=== PATIENT | female | born 1955 | race Two or more races ===

== ENCOUNTER 2019-08-07 01:10 | Emergency (ER) | payer MEDICAID ==
[~2019-08-07] VITALS: Ht 157.5 cm; Wt 70.3 kg
--- NOTE | 2019-08-07 01:15 | NUR ---
PATIENT CAME TO ER BED 15 FOR ANXIETY, LINA SATES THAT SHE CANNOT LIVE WITHOUT YAMILET (PATIENT'S DO) DENIES SIHI. AAAOX4. NO SOB. BREATHING EVENLY AND UNLABORED ON ROOM AIR.
[2019-08-07] MEDS ORDERED: OLANZAPINE 5 MG TABLET PO ONE (01:30)
[2019-08-07] MEDS ORDERED: LORAZEPAM 1 MG TABLET PO ONE (01:30)
[2019-08-07] MEDS ORDERED: OLANZAPINE 5 MG TABLET ONE (01:36)
[2019-08-07] MEDS ORDERED: LORAZEPAM 1 MG TABLET ONE (01:36)
[2019-08-07 01:43] LABS: BASOPHILS # (AUTO) 0.1 /CMM (0.0-0.2); BASOPHILS % (AUTO) 0.7 % (0.0-2.0); EOSINOPHILS % (AUTO) 1.9 % (0.0-6.0); HEMATOCRIT 35 % (33-45); HEMOGLOBIN 11.3 g/dL (11.5-14.8); LYMPHOCYTES # (AUTO) 2.5 /CMM (0.8-4.8); LYMPHOCYTES % (AUTO) 30.9 % (20.0-44.0); MEAN CORPUSCULAR HGB CONC 32 g/dl (31.0-36.0); MEAN CORPUSCULAR VOLUME 89 fL (82-100); MONOCYTES # (AUTO) 0.7 /CMM (0.1-1.30); MONOCYTES % (AUTO) 8.6 % (2.0-12.0); NEUTROPHILS # (AUTO) 4.7 /CMM (1.8-8.9); NEUTROPHILS % (AUTO) 57.9 % (43.0-81.0); PLATELET COUNT (AUTO) 386 /CMM (150-450); RED BLOOD CELL COUNT(AUTO) 3.91 MIL/uL (4.0-5.2); WHITE BLOOD COUNT (AUTO) 8.2 K/uL (4.3-11.0)
[2019-08-07 02:06] LABS: ALANINE AMINOTRANSFERASE 24 U/L (12-78); ALBUMIN 3.8 g/dL (3.4-5.0); ALKALINE PHOSPHATASE 70 U/L (46-116); ASPARTATE AMINOTRANSFERASE 28 U/L (15-37); BILIRUBIN,DIRECT 0.1 mg/dL (0.0-0.2); BILIRUBIN,TOTAL 0.2 mg/dL (0.2-1.0); CALCIUM, SERUM 9.2 mg/dL (8.5-10.1); CARBON DIOXIDE 28 mmol/L (21-32); CHLORIDE 107 mmol/L (98-107); GLUCOSE 109 mg/dL (74-106); POTASSIUM 3.7 mmol/L (3.5-5.1); SODIUM SERUM 144 mmol/L (136-145); TOTAL PROTEIN, SERUM 7.5 g/dL (6.4-8.2); UREA NITROGEN, BLOOD 25 mg/dL (7-18)
[2019-08-07 02:17] LABS: ACETAMINOPHEN 0 ug/ml (10-30); ALCOHOL, BLOOD < 3 mg/dL (0-0); SALICYLATE 1.7 mg/dL (2.8-20.0)
[2019-08-07 03:29] LABS: APPEARANCE,URINE Clear (CLEAR); BILIRUBIN,URINE Negative (NEGATIVE); BLOOD, URINE Trace-lysed Ery/uL (NEGATIVE); COLOR,URINE Yellow (YELLOW); KETONES,URINE Negative (NEGATIVE); LEUKOCYTE ESTERASE ,URINE Negative (NEGATIVE); NITRITE, URINE Negative (NEGATIVE); PH,URINE 5.5 (5.0-8.0); PROTEIN,URINE Negative (NEGATIVE); UGLUCOSE Negative (NEGATIVE)
[2019-08-07 03:48] LABS: BACTERIA,URINE None seen /HPF (None Seen); RBC,URINE 0-2 /HPF (0-2); SQUAMOUS EPITHELIAL CELL,UR Few /HPF (None Seen); WBC,URINE 0-2 /HPF (0-3)
--- NOTE | 2019-08-07 04:08 | NUR ---
PT IN BED SLEEPING. NAD NOTED.
--- NOTE | 2019-08-07 10:23 | NUR ---
NIKHIL SSD AT BEDSIDE FOR EVAL.
--- NOTE | 2019-08-07 10:52 | NUR ---
Social service consult requested by Md for suicidal ideation. Per MD notes and chart review, pt is a 62-year-old female brought in by rescue with complaints of being anxious and agitated. Patient states that she "cannot live and wants to "patient states she is felt this way since her dog . Denies homicidal ideation. PLUMBING INSTRUCTOR met with the pt bedside. Pt has a sitter bedside for safety. Pt is alert and oriented x 4. Pt appears anxious and tearful. Pt reports, she is depressed and upset over her dog dying. Pt is requesting voluntary psychiatric admission. PLUMBING INSTRUCTOR contacted Matthias at [facility] and faxed clinicals to [facility] intake for voluntary psychiatric admission.
--- NOTE | 2019-08-07 12:24 | NUR ---
VEHICLE BODY SANDER received call from [facility] intake. Pt has been accepted at [place]. Accepting Dr. Osullivan/Dr. Matthew. Report called to KWAN Rivera at x [phone] or [phone]. EVA updated Terell in ED
--- NOTE | 2019-08-07 12:29 | NUR ---
SLUG PRESS OPERATOR received call from [facility] intake. Pt has been accepted at [place]. Accepting Dr. Osullivan/Dr. Matthew. Report called to KWAN Rivera at x [phone] or [phone]. EVA updated Terell in ED
--- NOTE | 2019-08-07 14:30 | NUR ---
CALLED TRANSPORT [facility] ETA 1500 PER [facility]
[2019-08-07 15:24] VITALS: BP 121/65
--- NOTE | 2019-08-07 15:44 | NUR ---
REPORT GIVEN TO DEIRDRE BOWENS FOR GREER
== END 2019-08-07 15:46 ==
LOC: ER 01:14
DX: F32.9 Major depressive disorder, single episode, unspecified (principal); F41.9 Anxiety disorder, unspecified
CPT/HCPCS: 36415; 80048; 80076; 80305; 80307; 80329; 81001; 85025; G0480; 81000-TC; A6403

== ENCOUNTER 2019-08-20 04:11 | Emergency (ER) | payer MEDICAID ==
[~2019-08-20] VITALS: Ht 157.5 cm; Wt 66.2 kg
--- NOTE | 2019-08-20 04:17 | NUR ---
PT AAOX4. AMBULATORY BIBRA 878 FROM HOME C/O HEARING VOICES, DENIES SI AND HI. PLACED IN BED 12. ON MONITOR AND PULSE OX. VSS. NO ACUTE DISTRESS NOTED.
[2019-08-20] MEDS ORDERED: OLANZAPINE 10 MG VIAL IM ONE ×2 (04:21→04:30)
--- NOTE | 2019-08-20 04:29 | NUR ---
INDUSTRIAL MACHINE OPERATOR AT BEDSIDE. URINE GIVEN TO INDUSTRIAL MACHINE OPERATOR.
[2019-08-20 04:41] LABS: BASOPHILS # (AUTO) 0.1 /CMM (0.0-0.2); BASOPHILS % (AUTO) 0.7 % (0.0-2.0); EOSINOPHILS % (AUTO) 2.7 % (0.0-6.0); HEMATOCRIT 34 % (33-45); HEMOGLOBIN 11.2 g/dL (11.5-14.8); MEAN CORPUSCULAR HGB CONC 32 g/dl (31.0-36.0); MEAN CORPUSCULAR VOLUME 89 fL (82-100); MONOCYTES # (AUTO) 0.6 /CMM (0.1-1.30); MONOCYTES % (AUTO) 6.9 % (2.0-12.0); NEUTROPHILS # (AUTO) 5.7 /CMM (1.8-8.9); NEUTROPHILS % (AUTO) 66.7 % (43.0-81.0); PLATELET COUNT (AUTO) 332 /CMM (150-450); RED BLOOD CELL COUNT(AUTO) 3.88 MIL/uL (4.0-5.2); WHITE BLOOD COUNT (AUTO) 8.6 K/uL (4.3-11.0)
[2019-08-20 04:42] LABS: APPEARANCE,URINE CLEAR (CLEAR); BILIRUBIN,URINE NEGATIVE (NEGATIVE); BLOOD, URINE TRACE-INTA Ery/uL (NEGATIVE); COLOR,URINE YELLOW (YELLOW); KETONES,URINE NEGATIVE (NEGATIVE); LEUKOCYTE ESTERASE ,URINE SMALL (NEGATIVE); NITRITE, URINE NEGATIVE (NEGATIVE); PROTEIN,URINE NEGATIVE (NEGATIVE); UGLUCOSE NEGATIVE (NEGATIVE); UROBILINOGEN,URINE 0.2 EU/dL (0.2)
[2019-08-20 04:51] LABS: BACTERIA,URINE None seen /HPF (None Seen); RBC,URINE 0-2 /HPF (0-2); SQUAMOUS EPITHELIAL CELL,UR Few /HPF (None Seen)
[2019-08-20 04:56] LABS: ALANINE AMINOTRANSFERASE 28 U/L (12-78); ALBUMIN 3.6 g/dL (3.4-5.0); ALCOHOL, BLOOD < 3 mg/dL (0-0); ALKALINE PHOSPHATASE 78 U/L (46-116); ASPARTATE AMINOTRANSFERASE 23 U/L (15-37); BILIRUBIN,DIRECT 0.1 mg/dL (0.0-0.2); BILIRUBIN,TOTAL 0.2 mg/dL (0.2-1.0); CALCIUM, SERUM 8.7 mg/dL (8.5-10.1); CARBON DIOXIDE 24 mmol/L (21-32); CHLORIDE 108 mmol/L (98-107); CREATININE 0.9 mg/dL (0.6-1.3); GLUCOSE 152 mg/dL (74-106); POTASSIUM 3.5 mmol/L (3.5-5.1); SODIUM SERUM 144 mmol/L (136-145); TOTAL PROTEIN, SERUM 7.2 g/dL (6.4-8.2); UREA NITROGEN, BLOOD 18 mg/dL (7-18)
[2019-08-20 04:57] LABS: ACETAMINOPHEN 0 ug/ml (10-30); SALICYLATE 1.4 mg/dL (2.8-20.0)
--- NOTE | 2019-08-20 07:30 | NUR ---
Patient is resting comfortably in bed with eyes closed. Easily aroused. VSS.
--- NOTE | 2019-08-20 10:30 | NUR ---
RESPONDS TO TACTILE STIMULI, VSS
--- NOTE | 2019-08-20 15:00 | NUR ---
PT AMBULATED WITH STEADY GAIT TO RESTROOM.
--- NOTE | 2019-08-20 15:30 | NUR ---
PT AWAKE, STATES FEELING BETTER AND WOULD LIKE TO BE EVALUATED. STILL DENIES SI/HI, STILL HEARS VOICES. VSS.
--- NOTE | 2019-08-20 15:45 | NUR ---
CALLED [place] FOR [facility]. STATED TO WAIT UNTIL [place] AFTER 17[address]. ON [address] WAY CURRENTLY TO [place] FOR ANOTHER PT.
--- NOTE | 2019-08-20 15:48 | NUR ---
PT PROVIDED FOOD TRAY
--- NOTE | 2019-08-20 17:32 | NUR ---
Patient is resting comfortably in bed with eyes closed. Easily aroused. VSS
--- NOTE | 2019-08-20 19:25 | NUR ---
CALLED ANGIE WATERSHED PROGRAM MANAGER FOR EVALUATION. WILL GET BACK TO ME ABOUT WHO WILL RESPOND TO EVALUATE.
--- NOTE | 2019-08-20 19:35 | NUR ---
DR RUSSELL ON PHONE WITH ANGIE AOC OPERATIONS INTELLIGENCE OFFICER
--- NOTE | 2019-08-20 19:38 | NUR ---
DEREK- ANDRESSA [phone]
[2019-08-20] MEDS ORDERED: OLANZAPINE 5 MG TABLET ONE (19:43)
--- NOTE | 2019-08-20 19:48 | NUR ---
PT GIVEN PO MEDS PER ORDER, AND SANDWICH
[2019-08-20] MEDS ORDERED: OLANZAPINE 5 MG TABLET PO ONE (20:00)
--- NOTE | 2019-08-20 21:30 | NUR ---
Patient is resting comfortably in bed with eyes closed. Easily aroused. VSS
--- NOTE | 2019-08-20 22:51 | NUR ---
DAFNE COOKIE MIXER HELPER ETA 30 MIN
[2019-08-21] MEDS ORDERED: OLANZAPINE 5 MG TABLET ONE (00:34)
[2019-08-21] MEDS: OLANZAPINE 5 MG TABLET PO ONE ×2 (05:30)
[2019-08-21 05:40] VITALS: BP 107/66
--- NOTE | 2019-08-21 05:40 | NUR ---
SPOKED TO AHMET JOHN'S DAUGHTER SHE WILL PICK HER UP AT 0630H.
--- NOTE | 2019-08-21 06:29 | NUR ---
Patient discharged to home in stable condition. Written and verbal after care instructions given. Patient verbalizes understanding of instruction.
== END 2019-08-21 06:30 | disposition home or self-care (01) ==
LOC: ER 04:12
DX: R44.0 Auditory hallucinations (principal); F15.10 Other stimulant abuse, uncomplicated; I10 Essential (primary) hypertension; F32.9 Major depressive disorder, single episode, unspecified; Z88.0 Allergy status to penicillin
CPT/HCPCS: 36415; 80048; 80076; 80305; 80307; 80329; 81001; 85025; 96372; 99285; G0480; J3490; 81000-TC

== ENCOUNTER 2019-09-02 14:45 | Emergency (ER) | payer MEDICAID ==
[~2019-09-02] VITALS: Ht 157.5 cm; Wt 66.2 kg
--- NOTE | 2019-09-02 14:55 | NUR ---
c/o weakness and loss of appetite x 3 days. Patient a/ox4, breathing even and unlabored, no sob noted, needs attended, kept comfortable. Attached to the cardiac technician.
[2019-09-02] MEDS ORDERED: HYDROCODONE/APAP 5/325MG 1 EACH TABLET PO ONE (15:00)
[2019-09-02] MEDS ORDERED: HYDROCODONE/APAP 5/325MG 1 EACH TABLET ONE (15:07)
--- NOTE | 2019-09-02 15:14 | NUR ---
FLU SWAB SENT TO LAB.
--- NOTE | 2019-09-02 15:19 | NUR ---
FALL INTERN AT BEDSIDE FOR XRAY.
[2019-09-02 15:21] LABS: BASOPHILS % (AUTO) 0.6 % (0.0-2.0); EOSINOPHILS % (AUTO) 1.8 % (0.0-6.0); HEMATOCRIT 36 % (33-45); HEMOGLOBIN 11.9 g/dL (11.5-14.8); LYMPHOCYTES % (AUTO) 32.4 % (20.0-44.0); MEAN CORPUSCULAR HGB CONC 33 g/dl (31.0-36.0); MEAN CORPUSCULAR VOLUME 88 fL (82-100); MONOCYTES # (AUTO) 0.5 /CMM (0.1-1.30); MONOCYTES % (AUTO) 7.9 % (2.0-12.0); NEUTROPHILS # (AUTO) 3.5 /CMM (1.8-8.9); NEUTROPHILS % (AUTO) 57.3 % (43.0-81.0); PLATELET COUNT (AUTO) 305 /CMM (150-450); RED BLOOD CELL COUNT(AUTO) 4.08 MIL/uL (4.0-5.2); WHITE BLOOD COUNT (AUTO) 6.2 K/uL (4.3-11.0)
[2019-09-02 15:31] LABS: CREATININE 0.8 mg/dL (0.6-1.3); POTASSIUM 3.4 mmol/L (3.5-5.1)
[2019-09-02 15:37] LABS: ALBUMIN 3.7 g/dL (3.4-5.0); BILIRUBIN,TOTAL 0.5 mg/dL (0.2-1.0); TOTAL PROTEIN, SERUM 7.3 g/dL (6.4-8.2)
--- NOTE | 2019-09-02 16:27 | NUR ---
PATIENT A/OX4, BREATHING EVEN AND UNLABORED, NO SOB NOTED, NEEDS ATTENDED, KEPT COMFORTABLE. Patient discharged to home in stable condition. Written and verbal after care instructions given. Patient verbalizes understanding of instruction. Waiting for daughter to pick her up.
[2019-09-02 16:29] VITALS: BP 122/77
== END 2019-09-02 16:31 | disposition home or self-care (01) ==
LOC: ER 14:47
DX: B34.9 Viral infection, unspecified (principal); R05 Cough; G89.29 Other chronic pain; F50.89 Other specified eating disorder; I10 Essential (primary) hypertension
CPT/HCPCS: 36415; 71045-TC; 80053-TC; 85025-TC

== ENCOUNTER 2019-09-02 19:17 | Emergency (ER) | payer MEDICAID ==
[~2019-09-02] VITALS: Ht 157.5 cm; Wt 59.0 kg
--- NOTE | 2019-09-02 20:10 | NUR ---
WARD TO ER BED 9. AAOX4. NOT IN RESP DISTRESS. AGITATED. CAME IN FOR THOUGHT OF BEING . PT IS DEPRESSED. C/O AUDITORY HALLUCINATIONS THAT KEEPS REPEATING WHAT EVER THE PATIENT IS SAYING, KEEPS CALLING HER NAME OVER AND OVER. PT IS FEELING DEPRESSED BECAUSE OF HER DOG PASSING AWAY. PT DID VERBALIZE THAT SHE IS BUT HAVE NO SPECIFIC PLAN TO HARM HERSELF. PT IS STRIPPED OFF CLOTHING AND PERSONAL BELONGINGS KEPT IN LOCKER. 1:1 SITTER AT BEDSIDE. MD AT BEDSIDE FOR EVAL. BLOOD DRAWN. WILL CONTINUE TO MONITOR
[2019-09-02 20:20] LABS: BASOPHILS % (AUTO) 0.3 % (0.0-2.0); HEMATOCRIT 35 % (33-45); HEMOGLOBIN 11.6 g/dL (11.5-14.8); LYMPHOCYTES # (AUTO) 1.6 /CMM (0.8-4.8); LYMPHOCYTES % (AUTO) 16.5 % (20.0-44.0); MEAN CORPUSCULAR HGB CONC 33 g/dl (31.0-36.0); MEAN CORPUSCULAR VOLUME 88 fL (82-100); MONOCYTES # (AUTO) 0.8 /CMM (0.1-1.30); MONOCYTES % (AUTO) 8.4 % (2.0-12.0); NEUTROPHILS # (AUTO) 7.1 /CMM (1.8-8.9); NEUTROPHILS % (AUTO) 73.8 % (43.0-81.0); PLATELET COUNT (AUTO) 298 /CMM (150-450); RED BLOOD CELL COUNT(AUTO) 3.99 MIL/uL (4.0-5.2); WHITE BLOOD COUNT (AUTO) 9.6 K/uL (4.3-11.0)
[2019-09-02 20:33] LABS: CALCIUM, SERUM 9.2 mg/dL (8.5-10.1); CARBON DIOXIDE 25 mmol/L (21-32); CHLORIDE 107 mmol/L (98-107); GLUCOSE 156 mg/dL (74-106); POTASSIUM 3.1 mmol/L (3.5-5.1); SODIUM SERUM 143 mmol/L (136-145); UREA NITROGEN, BLOOD 23 mg/dL (7-18)
[2019-09-02] MEDS ORDERED: OLANZAPINE 10 MG VIAL IM ONE ×2 (20:35→21:00)
[2019-09-02 20:38] LABS: ALANINE AMINOTRANSFERASE 25 U/L (12-78); ALBUMIN 3.5 g/dL (3.4-5.0); ALCOHOL, BLOOD < 3 mg/dL (0-0); ALKALINE PHOSPHATASE 65 U/L (46-116); ASPARTATE AMINOTRANSFERASE 31 U/L (15-37); BILIRUBIN,DIRECT 0.1 mg/dL (0.0-0.2); BILIRUBIN,TOTAL 0.3 mg/dL (0.2-1.0); TOTAL PROTEIN, SERUM 7.1 g/dL (6.4-8.2)
[2019-09-02 20:39] LABS: APPEARANCE,URINE Clear (CLEAR); BILIRUBIN,URINE LARGE (NEGATIVE); BLOOD, URINE Trace-intact Ery/uL (NEGATIVE); COLOR,URINE Yellow (YELLOW); KETONES,URINE 15 (NEGATIVE); LEUKOCYTE ESTERASE ,URINE Trace (NEGATIVE); NITRITE, URINE Negative (NEGATIVE); PH,URINE 5.5 (5.0-8.0); PROTEIN,URINE 30 mg/dl (NEGATIVE); UGLUCOSE Negative (NEGATIVE)
[2019-09-02 20:46] LABS: ACETAMINOPHEN 0 ug/ml (10-30)
[2019-09-02 20:58] LABS: BACTERIA,URINE Few /HPF (None Seen); MUCUS,URINE Few /LPF (None Seen); RBC,URINE 0-2 /HPF (0-2); SQUAMOUS EPITHELIAL CELL,UR Few /HPF (None Seen); URINE AMORPHOUS URATE Few /HPF (None Seen); WBC,URINE 0-2 /HPF (0-3)
--- NOTE | 2019-09-02 21:10 | NUR ---
ANDRESSA BOWERS (DAUGHTER) [phone]
[2019-09-02] MEDS ORDERED: POTASSIUM CHLORIDE 20 MEQ TAB.PRT.SR PO ONE ×2 (21:30→21:39)
--- NOTE | 2019-09-03 01:27 | NUR ---
PT IN BED SLEEPING. BREATHING EVEN AND UNLABORED. NAD
--- NOTE | 2019-09-03 03:03 | NUR ---
PT IN BED SLEEPING COPMFORTABLY. NAD NOTED
--- NOTE | 2019-09-03 07:30 | NUR ---
pt covid test bill tolerated well fell back to sleep vss
--- NOTE | 2019-09-03 17:00 | NUR ---
pt awake talking on phone and watching tv quite calm vss tolerating snacks
--- NOTE | 2019-09-03 19:26 | NUR ---
REPORT RECEIVED FROM KWAN KERR
--- NOTE | 2019-09-03 21:41 | NUR ---
PT IN BED SLEEPING AND RESTING COMFORTABLY. SAFETY PRECAUTIONS IN PLACE. SITTER AT BEDSIDE FOR SAFETY
--- NOTE | 2019-09-04 00:17 | NUR ---
PT IN BED SLEEPING AND RESTING COMFORTABLY. SAFETY PRECAUTIONS IN PLACE. SITTER AT BEDSIDE FOR SAFETY
--- NOTE | 2019-09-04 02:27 | NUR ---
PT IN BED SLEEPING AND RESTING COMFORTABLY. SAFETY PRECAUTIONS IN PLACE. SITTER AT BEDSIDE FOR SAFETY
--- NOTE | 2019-09-04 04:09 | NUR ---
PT IN AWAKE AND RESTING COMFORTABLY. SAFETY PRECAUTIONS IN PLACE. SITTER AT BEDSIDE FOR SAFETY
--- NOTE | 2019-09-04 06:34 | NUR ---
PT SLEEPING AND RESTING COMFORTABLY. SAFETY PRECAUTIONS IN PLACE. SITTER AT BEDSIDE FOR SAFETY
[2019-09-04] MEDS ORDERED: HYDROCODONE/APAP 5/325MG 1 EACH TABLET ONE (10:26)
[2019-09-04] MEDS ORDERED: HYDROCODONE/APAP 5/325MG 1 EACH TABLET PO ONE (10:30)
--- NOTE | 2019-09-04 11:47 | NUR ---
ORGANIZATIONAL DEVELOPMENT DIRECTOR consulted with ED CRN Abundio in regards to pt. needing voluntary psychiatric admission. Pt was evaluated by drying machine receiver Amadeo and referred to [facility]. Pt was tested for negative for Covid. ORGANIZATIONAL DEVELOPMENT DIRECTOR refaxed clinicals to [facility] and spoke with Leah at [facility] intake.
--- NOTE | 2019-09-04 11:53 | NUR ---
patient asleep in no distress. arousable. Ambulate to bathroom with steady gait.
--- NOTE | 2019-09-04 13:06 | NUR ---
CRYPTOLOGIC TECHNICIAN called Leah at [facility] for a f/u. Per [facility], pt has been referred to [facility] and is pending acceptance by nursing a p supervisor. [facility] to call back once pt is accepted. Addendum: 09/04/19 at 1318 by NIKHIL LAW Received a call back from Leah at [facility] informing velma VELASQUEZ at [facility] is reviewing the clinicals and will call back shortly.
--- NOTE | 2019-09-04 14:23 | NUR ---
Pt accepted to [facility] Room 605-A Accepting MD is Dr. Vaz Number for report is [phone]
--- NOTE | 2019-09-04 14:47 | NUR ---
CALLED [facility] FOR TRANSPORT TO [facility]. ETA 1 HOUR AND A HALF 1530.
[2019-09-04 15:11] VITALS: BP 110/68
--- NOTE | 2019-09-04 15:13 | NUR ---
ambulance at bedside to burr picker the patient going to [facility] in no distress.
== END 2019-09-04 15:13 ==
LOC: ER 19:20
DX: R45.851 Suicidal ideations (principal); F15.10 Other stimulant abuse, uncomplicated; I10 Essential (primary) hypertension; F32.9 Major depressive disorder, single episode, unspecified; F20.9 Schizophrenia, unspecified; Z88.0 Allergy status to penicillin
CPT/HCPCS: 36415; 80048; 80076; 80305; 80307; 80329; 81001; 85025; 87635; 96372; 99285; G0480; J3490; 81000-TC

== ENCOUNTER 2020-03-01 18:58 | Emergency (ER) | payer MEDICAID, OTHER ==
--- NOTE | 2020-03-01 19:05 | NUR ---
called in waiting room. no response
--- NOTE | 2020-03-01 19:14 | NUR ---
pt left without being seen.
== END 2020-03-01 19:16 | disposition left against medical advice (07) ==
LOC: ER 19:03
DX: F41.9 Anxiety disorder, unspecified (principal); Z53.21 Procedure and treatment not carried out due to patient leaving prior to being seen by health care provider

== ENCOUNTER 2020-12-25 17:05 | Inpatient (IN) | payer MEDICARE, OTHER ==
[~2020-12-25] VITALS: Ht 157.5 cm; Wt 69.1 kg
--- NOTE | 2020-12-25 17:25 | NUR ---
BIBS, C/O SEVERE ANXIETY AND DEPRESSION, DENIES SI/HI AT THIS TIME. PATIENT A/OX4, BREATHING EVEN AND UNLABORED, NOTED TO BE SHAKING DUE TO ANXIETY, PER PATIENT. ASSISTED TO ER BED 10.
[2020-12-25] MEDS ORDERED: LORAZEPAM INJ 2 MG/ML VIAL ONE (17:46)
--- NOTE | 2020-12-25 17:52 | NUR ---
IV LINE ESTABLISHED, BLOOD DRAWN AND SENT TO LAB. URINE SENT.
[2020-12-25 18:00] LABS: BILIRUBIN,URINE SMALL (NEGATIVE); COLOR,URINE YELLOW (YELLOW); LEUKOCYTE ESTERASE ,URINE Trace (NEGATIVE); NITRITE, URINE Negative (NEGATIVE); PH,URINE 5.5 (5.0-8.0); PROTEIN,URINE Negative (NEGATIVE); UGLUCOSE Negative (NEGATIVE); UROBILINOGEN,URINE 0.2 EU/dL (0.2)
[2020-12-25] MEDS ORDERED: IV NS 0.9% 1,000 ML BAG IV ONE (18:00)
[2020-12-25] MEDS ORDERED: LORAZEPAM INJ 2 MG/ML VIAL IV ONE (18:00)
[2020-12-25] MEDS ORDERED: PARO40TA4 PO (18:03)
[2020-12-25] MEDS ORDERED: LOSA25TA27 PO (18:03)
[2020-12-25] MEDS ORDERED: ZOLP10TA2 PO (18:03)
[2020-12-25] MEDS ORDERED: DULO60CA64 PO (18:03)
[2020-12-25] MEDS ORDERED: DIAZ5TAB4 PO (18:03)
[2020-12-25] MEDS ORDERED: AMPH20TA3 PO (18:03)
[2020-12-25 18:05] LABS: BACTERIA,URINE Few /HPF (None Seen); RBC,URINE NONE SEEN /HPF (0-2); SQUAMOUS EPITHELIAL CELL,UR Few /HPF (None Seen)
[2020-12-25 18:09] LABS: BASOPHILS % (AUTO) 0.4 % (0.0-2.0); EOSINOPHILS % (AUTO) 0.8 % (0.0-6.0); HEMATOCRIT 40 % (33-45); LYMPHOCYTES % (AUTO) 21.6 % (20.0-44.0); MEAN CORPUSCULAR HGB CONC 33 g/dl (31.0-36.0); MEAN CORPUSCULAR VOLUME 90 fL (82-100); MONOCYTES # (AUTO) 0.5 K/uL (0.1-1.30); MONOCYTES % (AUTO) 5.6 % (2.0-12.0); NEUTROPHILS # (AUTO) 6.5 K/uL (1.8-8.9); NEUTROPHILS % (AUTO) 71.6 % (43.0-81.0); PLATELET COUNT (AUTO) 310 K/uL (150-450); RED BLOOD CELL COUNT(AUTO) 4.42 MIL/uL (4.0-5.2); WHITE BLOOD COUNT (AUTO) 9.1 K/uL (4.3-11.0)
[2020-12-25 18:28] LABS: ALANINE AMINOTRANSFERASE 37 U/L (12-78); ALCOHOL, BLOOD < 3 mg/dL (0-0); ALKALINE PHOSPHATASE 101 U/L (46-116); ASPARTATE AMINOTRANSFERASE 24 U/L (15-37); BILIRUBIN,DIRECT 0.1 mg/dL (0.0-0.2); BILIRUBIN,TOTAL 0.4 mg/dL (0.2-1.0); CALCIUM, SERUM 9.1 mg/dL (8.5-10.1); CARBON DIOXIDE 27 mmol/L (21-32); CHLORIDE 104 mmol/L (98-107); CREATININE 1.1 mg/dL (0.6-1.3); GLUCOSE 106 mg/dL (74-106); POTASSIUM 3.9 mmol/L (3.5-5.1); SODIUM SERUM 141 mmol/L (136-145); TOTAL PROTEIN, SERUM 7.7 g/dL (6.4-8.2); UREA NITROGEN, BLOOD 12 mg/dL (7-18)
[2020-12-25 18:29] LABS: ACETAMINOPHEN < 10 ug/ml (10-30)
--- NOTE | 2020-12-25 18:36 | NUR ---
CALLED DURAN ON HER WAY.
--- NOTE | 2020-12-25 21:10 | NUR ---
LC 220-1
--- NOTE | 2020-12-25 21:11 | NUR ---
JOSE RAUL WELLER AT BEDSIDE TO BRENNEN JOHN.
[2020-12-25] MEDS ORDERED: OLANZAPINE 5 MG TABLET PO ONE (21:30)
[2020-12-25] MEDS ORDERED: OLANZAPINE 5 MG TABLET ONE (21:34)
--- NOTE | 2020-12-25 22:27 | NUR ---
CALLED IN REPORT TO DORIS BOWENS
[2020-12-25] MEDS ORDERED: BLOOD SUGAR DIAGNOSTIC 1 EACH STRIP IN ONE (23:30)
[2020-12-25] MEDS ORDERED: MAGNESIUM HYDROXIDE 30 ML UDC PO PRN (23:30)
[2020-12-25] MEDS ORDERED: MAG HYDROX/AL HYDROX/SIMETH 30 ML UDC PO PRN (23:30)
[2020-12-25 23:36] VITALS: BP 141/82
--- NOTE | 2020-12-26 00:25 | NUR ---
GPS TICKET SALES AGENT NOTE RECEIVED 65 Y/O FEMALE PATIENT FROM [facility] ER/HOME. PATIENT ARRIVED ON GPS UNIT AT 2310 VIA GURNEY WITH NURSES. PATIENT ADMITTED ON A 5150 HOLD FOR DTS/GD. PER HOLD, PATIENT WAS VERY TEARFUL, SHE REPORTS SHE CRIES DAILY NON STOP. PATIENT REPORTS SHE IS HEARING AND SEEING HER DOG AND . SHE REPORTS THIS VISIONS ARE INCREASING AND THEY ARE SCARING HER. PATIENT REPORTS SHE HAS PRIOR HOSPITALIZATION FOR HER KIDS SPYING ON HER AND ANXIETY. PATIENT REPORTS SHE IS DX WITH ANXIETY & TAKING ADDERALL & AMBIEN. UPON FACE TO FACE ASSESSMENT PATIENT IS A & O X 3, WITH OCCASIONAL FORGETFULNESS, ANXIOUS, RESTLESS, TEARFUL, EMOTIONAL, TALKING TO HERSELF, VISUAL HALLUCINATIONS, PARANOID, DISHEVELED, DISORGANIZED, NO S/S OF PAIN. NO S/S OF APPARENT DISTRESS NOTED. PATIENT DENIES SI/HI AT THIS TIME. AMBULATORY WITH HER OWN CANE. CONTINENT. PATIENT REFUSED TO SIGNS ANY PAPER WORK DUE TO CURRENT MENTAL STATUS/ANXIOUS/RESTLESS/CRYING. PATIENT ADVISED OF HIS HOLD AND RIGHTS BOOKLET GIVEN. PATIENT IS UNDER THE PSYCHIATRIC CARE OF DR. MIKE AND THE MEDICAL CARE OF DR. MATOS. PATIENT BELONGINGS WERE INVENTORIED AND CHECKED FOR CONTRABAND. FULL BODY SKIN ASSESSMENT DONE, PATIENT ORIENTATED TO ROOM, FLOOR, AND STAFF. PATIENT EDUCATED ON THE USE OF THE CALL LIGHT. PATIENT BED SIDE RAILS ARE UP X 2 FOR SAFETY. PER PATIENT SHE RECEIVED MODERNA VACCINE 2 DOSES BUT FORGOT THE DATES. BED IS LOW/LOCKED. BED ALARM IS ON. I WILL CONTINUE TO MONITOR THIS PATIENT Q 15 MIN WITH THE HELP OF STAFF TO MAINTAIN SAFETY.
--- NOTE | 2020-12-26 00:30 | NUR ---
RN NOTE PATIENT HAD SNACK, TOLERATED WELL & FELL ASLEEP.
--- NOTE | 2020-12-26 06:54 | NUR ---
RN NOTE CALLED PATIENT'S DAUGHTER AHMET AT [phone] & INFORMED HER ABOUT PATIENT'S ADMISSION AT GPS UNIT.
--- NOTE | 2020-12-26 07:16 | NUR ---
RN NOTE ENDORSED TO AM RN TO FOLLOW UP WITH DR. MATOS TO GET PATIENT'S MEDS RECONCILED.
[2020-12-26 07:46] LABS: ALBUMIN 3.1 g/dL (3.4-5.0); BILIRUBIN,TOTAL 0.3 mg/dL (0.2-1.0); CALCIUM, SERUM 8.2 mg/dL (8.5-10.1); CREATININE 0.9 mg/dL (0.6-1.3); POTASSIUM 4.1 mmol/L (3.5-5.1); TOTAL PROTEIN, SERUM 6.2 g/dL (6.4-8.2)
[2020-12-26 07:52] LABS: CHOLESTEROL 177 mg/dL (<200); HDL CHOLESTEROL 33 mg/dL (40-60); LDL 115 mg/dL (0-99); TRIGLYCERIDES 139 mg/dL (30-150)
[2020-12-26 08:00] VITALS: BP 101/63
--- NOTE | 2020-12-26 08:56 | NUR ---
RN-CO: NOTIFIED DR MATOS OF HIS PATIENT AND REQUESTED TO RECONCILE HOME HOME MEDS.
[2020-12-26] MEDS: LORAZEPAM 0.5 MG TABLET PO PRN (10:08)
--- NOTE | 2020-12-26 10:09 | NUR ---
PT STATES FEELING ANXIOUS. ATIVAN 0.5MG GIVEN. WILL CONTINUE TO MONITOR.
--- NOTE | 2020-12-26 12:45 | NUR ---
Initial Discharge Plan: Pt plans to return to her prior living arrangement at home with self [[address], [place] [address]; [phone]]. THANH will work with the pt and the MD regarding appropriate discharge planning. SW will form a safe and proper discharge plan.
--- NOTE | 2020-12-26 13:40 | NUR ---
Family Contact: SW contacted pts daughter, Lucinda Zheng, . Lucinda reported that she will be able to provide transportation for the pt at the time of discharge. SS will continue to follow up and remain available.
[2020-12-26] MEDS: OLANZAPINE 2.5 MG TABLET PO SCH ×2 (13:48→20:01)
[2020-12-26] MEDS ORDERED: KEY,NONCONTROL,TO KEEP IN PYXI 1 EA MC ONE ×2 (14:00→16:41)
[2020-12-26 16:00] VITALS: BP 120/60
[2020-12-26] MEDS: ADDERALL 20 MG PO SCH (16:43)
[2020-12-26 19:50] VITALS: BP 105/61
[2020-12-27 08:00] VITALS: BP 110/65
[2020-12-27] MEDS: ADDERALL 20 MG PO SCH ×3 (08:20→17:00)
[2020-12-27] MEDS: LOSARTAN POTASSIUM 25 MG TABLET PO SCH (09:13)
[2020-12-27] MEDS: OLANZAPINE 2.5 MG TABLET PO SCH (13:29)
[2020-12-27 16:00] VITALS: BP 121/74
[2020-12-27 20:03] VITALS: BP 144/73
[2020-12-27] MEDS: OLANZAPINE 5 MG TABLET PO SCH (21:21)
[2020-12-27] MEDS: TEMAZEPAM 7.5 MG CAPSULE PO PRN (21:24)
--- NOTE | 2020-12-27 21:24 | NUR ---
GPS-RN NOTES: INSOMNIA PATIENT C/O INABILITY TO SLEEP. PRN RESTORIL 7.5MG PO GIVEN. WILL CONTINUE TO MONITOR.
[2020-12-28 08:00] VITALS: BP 114/70
[2020-12-28] MEDS: ADDERALL 20 MG PO SCH ×3 (09:58→17:16)
[2020-12-28] MEDS: LOSARTAN POTASSIUM 25 MG TABLET PO SCH (09:58)
[2020-12-28] MEDS: OLANZAPINE 2.5 MG TABLET PO SCH (12:46)
[2020-12-28 16:00] VITALS: BP 118/57
[2020-12-28 19:46] VITALS: BP 135/73
[2020-12-28 20:01] VITALS: BP 135/73
[2020-12-28] MEDS: OLANZAPINE 5 MG TABLET PO SCH (21:14)
[2020-12-28] MEDS: TEMAZEPAM 7.5 MG CAPSULE PO PRN (22:17)
--- NOTE | 2020-12-28 22:19 | NUR ---
RN NOTE: INSOMNIA PATIENT VERBALIZED THAT SHE IS UNABLE TO SLEEP AT THIS TIME & REQUESTED SLEEPING MEDICINE. PRN RESTORIL 7.5 MG 1 CAP PO ADMINISTERED
[2020-12-28] MEDS: ACETAMINOPHEN 325 MG TABLET PO PRN (23:16)
--- NOTE | 2020-12-28 23:17 | NUR ---
RN NOTE: PAIN PATIENT C/O LOWER BACK PAIN 07/24 & REQUESTED TO TAKE TYLENOL. PRN TYLENOL 650 MG PO ADMINISTERED. WILL CONTINUE TO MONITOR.
[2020-12-29 08:00] VITALS: BP 115/68
[2020-12-29] MEDS: ADDERALL 20 MG PO SCH ×3 (08:31→17:41)
[2020-12-29] MEDS: LOSARTAN POTASSIUM 25 MG TABLET PO SCH (08:32)
[2020-12-29] MEDS: OLANZAPINE 2.5 MG TABLET PO SCH (13:45)
[2020-12-29 16:00] VITALS: BP 137/69
[2020-12-29] MEDS: LORAZEPAM 0.5 MG TABLET PO PRN (16:15)
[2020-12-29 20:00] VITALS: BP 122/69
[2020-12-29] MEDS: OLANZAPINE 5 MG TABLET PO SCH (21:48)
[2020-12-29] MEDS: TEMAZEPAM 7.5 MG CAPSULE PO PRN (22:06)
--- NOTE | 2020-12-29 22:06 | NUR ---
GPS RN NOTES: PATIENT REQUESTED FOR SLEEP MEDICATION. RESTORIL 7.5MG/1CAP GIVEN PO AT 2206. WILL CONTINUE TO MONITOR.
[2020-12-29] MEDS: ACETAMINOPHEN 325 MG TABLET PO PRN (22:58)
--- NOTE | 2020-12-29 23:01 | NUR ---
GPS RN NOTES: TYLENOL AT 2258 FOR BACK PAIN. WILL CONTINUE TO MONITOR.
[2020-12-30 08:00] VITALS: BP 118/74
[2020-12-30] MEDS: LOSARTAN POTASSIUM 25 MG TABLET PO SCH (08:44)
[2020-12-30] MEDS ORDERED: KEY,NONCONTROL,TO KEEP IN PYXI 1 EA MC ONE ×3 (08:56→14:00)
[2020-12-30] MEDS: ADDERALL 20 MG PO SCH ×2 (09:02→14:06)
[2020-12-30] MEDS: ACETAMINOPHEN 325 MG TABLET PO PRN (09:05)
[2020-12-30] MEDS ORDERED: GABAPENTIN 300 MG CAPSULE PO SCH (13:00)
[2020-12-30] MEDS: GABAPENTIN 300 MG CAPSULE PO SCH ×2 (13:06→16:37)
[2020-12-30] MEDS: OLANZAPINE 2.5 MG TABLET PO SCH ×2 (13:06→16:37)
[2020-12-30 16:00] VITALS: BP 133/85
[2020-12-30 20:00] VITALS: BP 125/65
[2020-12-30] MEDS ORDERED: OLANZAPINE 5 MG TABLET PO SCH (21:00)
[2020-12-30] MEDS: TEMAZEPAM 7.5 MG CAPSULE PO PRN (22:00)
--- NOTE | 2020-12-30 22:00 | NUR ---
GPS RN NOTES: RESTORIL 7.5MG/1CAP GIVEN PO AT 2201 AT PATIENT REQUEST. WILL CONTINUE TO MONITOR
--- NOTE | 2020-12-30 22:36 | NUR ---
GPS RN NOTES: ZYPREXA 7.5MG ADMINISTERED, PARTIAL DOSE 0.25MG WASTED PER MD ORDER.
[2020-12-31] MEDS: ACETAMINOPHEN 325 MG TABLET PO PRN (04:31)
--- NOTE | 2020-12-31 06:52 | NUR ---
GPS RN CLOSING NOTES: PATIENT IS CURRENTLY SLEEPING COMFORTABLY IN BED. PATIENT SLEPT 6HRS THIS SHIFT. PATIENT HAS NO S/S OF DISTRESS AT THIS TIME. RESPIRATION EVEN AND UNLABORED WITH EQUAL RISE AND FALL OF THE CHEST, ON ROOM AIR. ALL PATIENT CARE NEEDS HAVE BEEN MET ANTICIPATED. WILL CONTINUE TO MONITOR AND ENDORSE TO AM SHIFT.
[2020-12-31] MEDS ORDERED: KEY,NONCONTROL,TO KEEP IN PYXI 1 EA MC ONE ×3 (07:54→13:40)
[2020-12-31 08:00] VITALS: BP 124/69
[2020-12-31] MEDS: ADDERALL 20 MG PO SCH ×2 (08:12→12:30)
[2020-12-31] MEDS: LOSARTAN POTASSIUM 25 MG TABLET PO SCH (08:13)
[2020-12-31] MEDS: OLANZAPINE 2.5 MG TABLET PO SCH ×2 (08:13→12:31)
[2020-12-31] MEDS: GABAPENTIN 300 MG CAPSULE PO SCH ×3 (08:13→16:20)
[2020-12-31 16:00] VITALS: BP 134/72
[2020-12-31 20:00] VITALS: BP 138/85
[2020-12-31] MEDS ORDERED: OLANZAPINE 5 MG TABLET PO SCH (20:00)
[2020-12-31 20:10] VITALS: BP 138/85
[2020-12-31 21:20] VITALS: BP 141/76
[2020-12-31] MEDS: TEMAZEPAM 7.5 MG CAPSULE PO PRN ×2 (21:26→23:26)
--- NOTE | 2020-12-31 21:28 | NUR ---
RN NOTE: INSOMNIA PATIENT VERBALIZED THAT SHE IS UNABLE TO SLEEP AT THIS TIME & REQUESTED SLEEPING MEDICINE. PRN RESTORIL 7.5 MG 1 CAP PO ADMINISTERED. WILL CONTINUE TO MONITOR.
--- NOTE | 2020-12-31 23:30 | NUR ---
RN NOTE: INSOMNIA PATIENT REQUESTED TO TAKE ANOTHER SLEEPING MEDICINE, PER DOCTORS ORDER, MAY REPEAT RESTORIL 7.5 MG 1 CAP X 1, ANOTHER RESTORIL 7.5 MG 1 CAP ADMINISTERED. WILL CONTINUE TO MONITOR.
[2021-01-01] MEDS: ACETAMINOPHEN 325 MG TABLET PO PRN (03:19)
--- NOTE | 2021-01-01 03:20 | NUR ---
RN NOTE: HEADACHE PATIENT C/O HEADACHE & REQUESTED TO TAKE TYLENOL. PRN TYLENOL 650 MG PO ADMINISTERED. WILL CONTINUE TO MONITOR.
[2021-01-01 08:00] VITALS: BP 119/68
[2021-01-01] MEDS ORDERED: KEY,NONCONTROL,TO KEEP IN PYXI 1 EA MC ONE ×2 (08:18→12:21)
[2021-01-01] MEDS: ADDERALL 20 MG PO SCH ×2 (08:42→12:49)
[2021-01-01] MEDS: OLANZAPINE 2.5 MG TABLET PO SCH ×2 (08:43→12:49)
[2021-01-01] MEDS: LOSARTAN POTASSIUM 25 MG TABLET PO SCH (08:43)
[2021-01-01] MEDS: GABAPENTIN 300 MG CAPSULE PO SCH ×3 (08:43→16:33)
[2021-01-01 16:07] VITALS: BP 130/74
[2021-01-01] MEDS: LORAZEPAM 0.5 MG TABLET PO PRN (16:30)
--- NOTE | 2021-01-01 16:30 | NUR ---
RN NOTE: ANXIETY PT CRYING UNCONTROLLABLY. UPSET WITH PHONE CALL FROM FAMILY. UNABLE TO BE REDIRECTED AND REASSURED. ANXIOUS AND AGITATED. MEDICATED WITH ATIVAN 0.5 MG PO PRN
--- NOTE | 2021-01-01 16:45 | NUR ---
Probable cause hearing: Pt.'s 5250 hold was upheld on the grounds of gravely disabled.
[2021-01-01 20:00] VITALS: BP 122/74
[2021-01-01] MEDS: OLANZAPINE 5 MG TABLET PO SCH (20:24)
[2021-01-01 20:30] VITALS: BP 122/74
[2021-01-01] MEDS: TEMAZEPAM 7.5 MG CAPSULE PO PRN ×2 (22:02→23:26)
--- NOTE | 2021-01-01 22:03 | NUR ---
RN NOTE: INSOMNIA PATIENT VERBALIZED THAT SHE IS UNABLE TO SLEEP & REQUESTED TO TAKE SLEEPING MEDICINE, RESTORIL 7.5 MG 1 CAP ADMINISTERED. WILL CONTINUE TO MONITOR.
--- NOTE | 2021-01-01 23:28 | NUR ---
RN NOTE: INSOMNIA PATIENT REQUESTED TO TAKE ANOTHER SLEEPING MEDICINE DUE TO SLEEPLESSNESS, PER DOCTORS ORDER, MAY REPEAT RESTORIL 7.5 MG 1 CAP X 1, ANOTHER RESTORIL 7.5 MG 1 CAP ADMINISTERED. WILL CONTINUE TO MONITOR.
[2021-01-02] MEDS: ACETAMINOPHEN 325 MG TABLET PO PRN ×2 (01:36→16:16)
--- NOTE | 2021-01-02 01:36 | NUR ---
RN NOTE: HEADACHE PATIENT C/O HEADACHE & REQUESTED TO TAKE TYLENOL. PRN TYLENOL 650 MG PO ADMINISTERED. WILL CONTINUE TO MONITOR.
[2021-01-02] MEDS ORDERED: KEY,NONCONTROL,TO KEEP IN PYXI 1 EA MC ONE ×2 (07:56→12:09)
[2021-01-02 08:00] VITALS: BP_SYST 110; BP_SYST 127; BP_DIAS 68; BP_DIAS 69
[2021-01-02] MEDS: ADDERALL 20 MG PO SCH ×2 (08:00→12:34)
[2021-01-02] MEDS: OLANZAPINE 2.5 MG TABLET PO SCH ×2 (08:01→12:34)
[2021-01-02] MEDS: LOSARTAN POTASSIUM 25 MG TABLET PO SCH (08:01)
[2021-01-02] MEDS: GABAPENTIN 300 MG CAPSULE PO SCH ×3 (08:02→16:16)
[2021-01-02 16:00] VITALS: BP 127/69
[2021-01-02 20:00] VITALS: BP 142/75
[2021-01-02] MEDS: OLANZAPINE 5 MG TABLET PO SCH (21:02)
[2021-01-02] MEDS: TEMAZEPAM 7.5 MG CAPSULE PO PRN (21:41)
--- NOTE | 2021-01-02 21:41 | NUR ---
GPS-RN NOTES: INSOMNIA PATIENT C/O INABILITY TO SLEEP. ADMINISTERED RESTORIL 7.5MG PO ORDERED. WILL CONTINUE TO MONITOR.
[2021-01-03] MEDS: ACETAMINOPHEN 325 MG TABLET PO PRN ×2 (04:07→23:26)
--- NOTE | 2021-01-03 04:07 | NUR ---
GPS-RN NOTES: HEADACHE PATIENT C/O HEADACHE. PRN ACETAMINOPHEN 650MG PO ORDERED. WILL CONTINUE TO MONITOR AND REASSESS.
[2021-01-03 08:00] VITALS: BP 128/73
[2021-01-03] MEDS ORDERED: KEY,NONCONTROL,TO KEEP IN PYXI 1 EA MC ONE ×2 (08:11→12:19)
[2021-01-03] MEDS: GABAPENTIN 300 MG CAPSULE PO SCH ×3 (08:17→16:18)
[2021-01-03] MEDS: OLANZAPINE 2.5 MG TABLET PO SCH ×2 (08:17→12:32)
[2021-01-03] MEDS: ADDERALL 20 MG PO SCH ×2 (08:17→12:32)
[2021-01-03] MEDS: LOSARTAN POTASSIUM 25 MG TABLET PO SCH (08:18)
[2021-01-03 16:00] VITALS: BP 126/88
[2021-01-03] MEDS: OLANZAPINE 5 MG TABLET PO SCH (19:22)
[2021-01-03 20:07] VITALS: BP 116/73
[2021-01-03] MEDS: TEMAZEPAM 7.5 MG CAPSULE PO PRN (21:27)
--- NOTE | 2021-01-03 21:27 | NUR ---
GPS-RN NOTES: INSOMNIA PATIENT C/O INABILITY TO SLEEP. ADMINISTERED RESTORIL 7.5MG PO ORDERED. WILL CONTINUE TO MONITOR.
--- NOTE | 2021-01-03 23:26 | NUR ---
GPS-RN NOTES: HEADACHE PATIENT C/O HEADACHE. PRN ACETAMINOPHEN 650MG PO ORDERED. WILL CONTINUE TO MONITOR AND REASSESS.
[2021-01-03] MEDS: LORAZEPAM 0.5 MG TABLET PO PRN (23:32)
--- NOTE | 2021-01-03 23:32 | NUR ---
GPS-RN NOTES: PATIENT C/O FEELING ANXIOUS. PRN ATIVAN 0.5MG PO GIVEN ORDERED. WILL CONTINUE TO MONITOR FOR PATIENT'S SAFETY.
[2021-01-04 08:00] VITALS: BP 116/66
[2021-01-04] MEDS: OLANZAPINE 2.5 MG TABLET PO SCH ×2 (08:37→13:22)
[2021-01-04] MEDS: GABAPENTIN 300 MG CAPSULE PO SCH ×3 (08:37→18:03)
[2021-01-04] MEDS: LOSARTAN POTASSIUM 25 MG TABLET PO SCH (08:37)
[2021-01-04] MEDS: ADDERALL 20 MG PO SCH ×2 (08:45→13:22)
[2021-01-04 16:00] VITALS: BP 123/84
[2021-01-04] MEDS: OLANZAPINE 5 MG TABLET PO SCH (19:39)
[2021-01-04 20:00] VITALS: BP 138/75
[2021-01-04 20:31] VITALS: BP 138/75
[2021-01-04] MEDS: TEMAZEPAM 7.5 MG CAPSULE PO PRN (21:51)
--- NOTE | 2021-01-04 21:54 | NUR ---
RN NOTES: SHE REQUEST TO HAVE HER SLEEPING PILL, SHE SAID SHE WANT SOMETHING FOR HER SLEEP, GIVEN PER PATIENT REQUEST; REINFORCE WITH RELAXATION TECHNIQUE SUCH DEEP BREATHING.
[2021-01-05] MEDS: ACETAMINOPHEN 325 MG TABLET PO PRN (01:39)
--- NOTE | 2021-01-05 01:40 | NUR ---
RN NOTES: PATIENT WAS AWAKE AND SHE ASKED FOR HER PAIN MEDICATION, SHE COMPLAINED OF MILD HEADACHE 3/10, TYLENOL GIVEN PER PATIENT REQUEST,NON PHARMACOLOGIC INTERVENTION DONE, DIM LIT AND ENCOURAGE TO DO RELAXATION TECHNIQUE.FALL AND SAFETY PRECATUION OBSERVED.
[2021-01-05 08:00] VITALS: BP 113/70
[2021-01-05] MEDS ORDERED: KEY,NONCONTROL,TO KEEP IN PYXI 1 EA MC ONE (08:36)
[2021-01-05] MEDS: GABAPENTIN 300 MG CAPSULE PO SCH ×3 (08:43→17:58)
[2021-01-05] MEDS: OLANZAPINE 2.5 MG TABLET PO SCH ×2 (08:43→13:13)
[2021-01-05] MEDS: LOSARTAN POTASSIUM 25 MG TABLET PO SCH (08:44)
[2021-01-05] MEDS: ADDERALL 20 MG PO SCH ×2 (08:52→13:13)
[2021-01-05 16:00] VITALS: BP 141/93
[2021-01-05] MEDS: OLANZAPINE 5 MG TABLET PO SCH (17:58)
[2021-01-05 20:00] VITALS: BP 135/77
[2021-01-05] MEDS: TEMAZEPAM 7.5 MG CAPSULE PO PRN (22:54)
--- NOTE | 2021-01-05 22:56 | NUR ---
RN NOTES: INSOMNIA PT. C/O UNABLE TO SLEEP , RESTOEIL7.5 MG PO PRN GIVEN, WILL CONTINUE TO MONITOR.
[2021-01-06 08:00] VITALS: BP 111/75
[2021-01-06] MEDS ORDERED: KEY,NONCONTROL,TO KEEP IN PYXI 1 EA MC ONE ×2 (08:42→12:21)
[2021-01-06] MEDS: OLANZAPINE 2.5 MG TABLET PO SCH ×2 (08:46→12:29)
[2021-01-06] MEDS: LOSARTAN POTASSIUM 25 MG TABLET PO SCH (08:46)
[2021-01-06] MEDS: ADDERALL 20 MG PO SCH ×2 (08:46→12:31)
[2021-01-06] MEDS: GABAPENTIN 300 MG CAPSULE PO SCH ×3 (08:46→17:08)
--- NOTE | 2021-01-06 09:00 | NUR ---
RN NOTE- CALM COOPERATIVE INTERACTIVE PT RESTING COMFORTABLY IN HER BED. AMBULATORY VSS. DAILY MEDS COMPLIANT. NO ACUTE DISTRESS NOTED.ALL NEEDS ATTENDED AND ANTICIPATED. WILL CONTINUE TO MONITOR Q15MIN FOR SAFETY AND BEHAVIOR
[2021-01-06 16:00] VITALS: BP 123/78
[2021-01-06] MEDS: OLANZAPINE 5 MG TABLET PO SCH (19:57)
[2021-01-06 20:00] VITALS: BP 137/95
[2021-01-06] MEDS: TEMAZEPAM 7.5 MG CAPSULE PO PRN (20:59)
[2021-01-06] MEDS: ACETAMINOPHEN 325 MG TABLET PO PRN (23:27)
[2021-01-07] MEDS ORDERED: KEY,NONCONTROL,TO KEEP IN PYXI 1 EA MC ONE ×3 (07:22→13:54)
[2021-01-07 08:00] VITALS: BP 138/85
[2021-01-07] MEDS: ADDERALL 20 MG PO SCH ×2 (09:07→12:40)
[2021-01-07 09:08] VITALS: BP 138/85
[2021-01-07] MEDS: LOSARTAN POTASSIUM 25 MG TABLET PO SCH (09:08)
[2021-01-07] MEDS: GABAPENTIN 300 MG CAPSULE PO SCH ×2 (09:08→12:41)
[2021-01-07] MEDS: OLANZAPINE 2.5 MG TABLET PO SCH ×2 (09:08→12:41)
--- NOTE | 2021-01-07 12:00 | NUR ---
D/C Note: Pt. will be discharged on 01/07/2021 to Home [[address], [place] [address]; [phone]]. Pt will be picked up by daughter, Lucinda Zheng [phone] at 1 pm. Pt appears to be alert and oriented x 4 (place, self, time & situation) & appears to be slightly anxious. Pt denies both suicidal and homicidal ideations and pt. denies hallucinations. Pt appears to be ambulatory with a steady gait. Pt appears to be well groomed and dressed appropriately. Pt. will follow up with Psychatrist, Dr. Valdez [[address] [facility] [place] [place] [id number]; ] for outpatient psychiatric Tx. Pt. whas been instructed to see a PCP at [facility] [[address] [place] [address]] within 1 week for GREER. The multidisciplinary exit care form was done, printed, signed, and given to the patient.
--- NOTE | 2021-01-07 14:00 | NUR ---
FLYING INSTRUCTOR NOTE- PT DC AT THIS TIME INTO CARE OF SON. PT IS ALERT ORIENTED TO PERSON PLACE TIME PURPOSE. VS STABLE, MED COMPLIANT, VALUABLES RETURNED AND SIGNED FOR. ID [id number] REMOVED. PT CALM COOPERATIVE DENIES SI HI AH VH. ESCORTED OFF UNIT AND SIGNED INTO CARE OF SON.
== END 2021-01-07 14:05 | disposition home or self-care (01) | DRG 885 ==
LOC: ER 17:18 → GPS 22:52
PROVIDERS: ADMIT Psychiatry & Neurology Psychosomatic Medicine; ATTEND Legal Medicine
DX: F25.9 Schizoaffective disorder, unspecified (principal); E44.1 Mild protein-calorie malnutrition; F29 Unspecified psychosis not due to a substance or known physiological condition; I10 Essential (primary) hypertension; Z20.822 Contact with and (suspected) exposure to COVID-19; F32.9 Major depressive disorder, single episode, unspecified; F41.9 Anxiety disorder, unspecified; E66.9 Obesity, unspecified; F43.10 Post-traumatic stress disorder, unspecified; F90.9 Attention-deficit hyperactivity disorder, unspecified type; M19.90 Unspecified osteoarthritis, unspecified site; Z73.6 Limitation of activities due to disability; E88.09 Other disorders of plasma-protein metabolism, not elsewhere classified; Z68.27 Body mass index [BMI] 27.0-27.9, adult; F19.10 Other psychoactive substance abuse, uncomplicated
CPT/HCPCS: 36415; 80048-TC; 80053-TC; 80061-TC; 80076-TC; 81001; 82962-TC; 85025-TC; 87081-TC; 97112-TC; 97116-TC; 97530-TC; A4623; C9803; G0480; J2060; J7030